=== PATIENT | female | born 1990 | race Caucasian/White ===

== ENCOUNTER 2017-03-02 16:12 | Emergency (ER) | payer OTHER ==
[~2017-03-02] VITALS: Ht 160 cm; Wt 72.5 kg
[~2017-03-02 16:12] MED LIST: AMO500 PO; D-ME118S6 PO
[2017-03-02 16:21] VITALS: Ht 160 cm; Wt 72.5 kg
[2017-03-02 17:40] LABS: URINE BLOOD (Dip) POC Trace-intact (NEGATIVE)
[2017-03-02] MEDS ORDERED: ACETAMINOPHEN 500 MG TAB PO STA (18:04)
[2017-03-02] MEDS ORDERED: ACET500C5 PO (18:09)
[2017-03-02] MEDS ORDERED: CEPH-443 PO (18:09)
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
[2017-03-02] MEDS ORDERED: ACETAMINOPHEN 500 MG TAB ONE (18:24)
[2017-03-02] MEDS ORDERED: CEPHALEXIN 500 MG CAP ONE (18:24)
[2017-03-02] MEDS ORDERED: CEPHALEXIN 500 MG CAP PO ONE (18:30)
[2017-03-02] MEDS ORDERED: PREN-21 PO (18:57)
== END 2017-03-02 18:32 | disposition home or self-care (01) ==
LOC: FTE 16:12
DX: O9A.212 Injury, poisoning and certain other consequences of external causes complicating pregnancy, second trimester (principal); S39.92XA Unspecified injury of lower back, initial encounter; V49.40XA Driver injured in collision with unspecified motor vehicles in traffic accident, initial encounter; Y92.410 Unspecified street and highway as the place of occurrence of the external cause; Z3A.27 27 weeks gestation of pregnancy
CPT/HCPCS: 81003; 87086; Z7502; Z7610; 99283

== ENCOUNTER 2017-03-02 18:39 | Inpatient (IN) | payer OTHER ==
[~2017-03-02] VITALS: Ht 154.9 cm; Wt 72.0 kg
[~2017-03-02 18:39] MED LIST changes: +ACET500C5 PO; +CEPH-443 PO
[2017-03-02 18:53] VITALS: Ht 154.9 cm; Wt 72.0 kg
[2017-03-02 18:54] VITALS: BP 95/59; PULSE 71; RESP 18
[2017-03-02] MEDS ORDERED: PREN-21 PO (18:57)
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
[2017-03-02] MEDS ORDERED: TERBUTALINE 1 MG/ML INJ SC PRN (22:30)
[2017-03-02] MEDS ORDERED: LACTATED RINGER'S 1,000 ML IV ONE (22:30)
[2017-03-02] MEDS: LACTATED RINGER'S 1,000 ML IV SCH (23:30)
[2017-03-03] MEDS ORDERED: DOCUSATE SODIUM 100 MG CAP PO PRN
[2017-03-03] MEDS ORDERED: MAGNESIUM SULFATE 4 GM/100 ML 100 ML IV ONE
[2017-03-03] MEDS: LACTATED RINGER'S 1,000 ML IV SCH ×3 (00:07→19:00)
[2017-03-03] MEDS: BETAMET NA PHOS/AC(6 MG/ML) 5ML INJ IM SCH (00:08)
[2017-03-03] MEDS: MAGNESIUM SULFATE 20 GM/500 ML 500 ML IV SCH ×3 (00:40→19:13)
[2017-03-03] MEDS ORDERED: CEFAZOLIN 2 GM/50 ML (PMX) 50 ML IVPB ONE (01:00)
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
--- NOTE | 2017-03-03 22:49 | NEURPT ---
DATE: 03/03/2017 HISTORY: The patient has intrauterine at 31 weeks and 1 day, who presented with labor. She is receiving magnesium sulfate and received 1st dose of betamethasone early this morning. Cervical length 2.2 cm. She is stable. No contractions. History is negative. REVIEW OF SYSTEMS: Negative except for as mentioned above. PHYSICAL EXAMINATION: Vital signs are stable. Physical examination is deferred. Heart tones reassuring for gestational age. Contractions none. UA negative. IMPRESSION: Intrauterine at 31 weeks with labor, status post betamethasone times 1 on magnesium sulfate. She is to receive the 2nd dose of betamethasone after midnight on March 04. Stable currently without contraction. RECOMMENDATIONS: Continue with the magnesium sulfate 24 hours after the 2nd dose of betamethasone. After that, it can be discontinued. Monitor for a few hours. If the patient is stable without any cervical change she can be discharged home with followup with perinatology in about 2 weeks for cervical length. Once discharged she needs to be on modified bedrest and pelvic rest. Dictated By: Soraya Lei MD /anna/jpc /Document#: [id number]
[2017-03-04] MEDS: BETAMET NA PHOS/AC(6 MG/ML) 5ML INJ IM SCH (00:08)
[2017-03-04] MEDS: LACTATED RINGER'S 1,000 ML IV SCH ×2 (00:09→13:26)
[2017-03-04] MEDS: MAGNESIUM SULFATE 20 GM/500 ML 500 ML IV SCH ×2 (05:59→16:17)
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
--- NOTE | 2017-03-04 17:52 | DS ---
Date/Time of Note Date/Time of Note DATE: 03/04/17 TIME: 17:51 Discharge Summary Admission/Discharge Info Admit Date/Time Mar 02, 2017 at 23:30 Discharge Date/Time Feb Discharge Diagnosis labor Patient Condition: Good Hospital Course uneventful Home Meds Active Scripts Cephalexin* (Keflex*) 500 Mg Capsule, 500 MG PO QID for 5 Days, CAP Prov:RITA CRUZ MD 03/02/17 Acetaminophen* (Tylophen*) 500 Mg Capsule, 1 CAP PO Q6H Y for PAIN AND OR ELEVATED TEMP, #15 CAP Prov:RITA CRUZ MD 03/02/17 Dextromethorphan Hb-Promethazine Hcl (Promethazine DM Syrup) 180 Ml Syrup, 5 ML PO Q6H Y for COUGH, #4 OZ Prov:SUMAN MOTTA DO 12/10/15 Amoxicillin* (Amoxicillin*) 500 Mg Cap, 500 MG PO TID for 7 Days, CAP Prov:SUMAN MOTTA DO 12/10/15 Reported Medications Wit489/Iron Fumarate/FA/Dss ( 19 Tablet) 1 Each Tablet, 1 EACH PO DAILY , TAB 03/02/17 Primary Care Provider Micah Pleitez Pending Labs Laboratory Tests Test 03/03/17 18:11 03/03/17 23:58 03/04/17 06:05 03/04/17 11:45 Magnesium Level 5.9mg/dl (1.7-2.5) 6.2mg/dl (1.7-2.5) 5.3mg/dl (1.7-2.5) 6.2mg/dl (1.7-2.5) SILVINO GARCIA M.D. Mar 04, 2017 17:52
== END 2017-03-04 23:30 | disposition home or self-care (01) | DRG 782 ==
LOC: L-D 18:39 → OBT 18:39 → L-D 18:40 → OBG 23:30 → OBT 23:30
PROVIDERS: ADMIT Obstetrics & Gynecology; ATTEND Obstetrics & Gynecology
DX: O26.873 Cervical shortening, third trimester (principal); Z3A.31 31 weeks gestation of pregnancy
CPT/HCPCS: 36415; 76817; 76818; 82731; 83735; 86850; 86900; 86901; 96360; G0463; J0690; J0702; J3475; J7120

== ENCOUNTER 2017-05-01 12:00 | Inpatient (IN) | payer OTHER ==
[2017-05-01] MEDS ORDERED: LACTATED RINGER'S 1,000 ML IV SCH (12:08)
[2017-05-01] MEDS ORDERED: LACTATED RINGER'S 1,000 ML IV PRN (12:10)
[2017-05-01] MEDS ORDERED: AMPICILLIN 2 GM/NS (PMX) 100 ML IV ONE (12:30)
[2017-05-01] MEDS ORDERED: OXYTOCIN 30 UNITS/LR 500 ML IV PRN ×2 (12:30→15:00)
[2017-05-01] MEDS ORDERED: LIDOCAINE 1% (MPF) 30 ML INJ INJ PRN (12:30)
[2017-05-01] MEDS ORDERED: OXYTOCIN 30 UNITS/LR 500 ML IV SCH ×2 (12:30)
[2017-05-01] MEDS ORDERED: BUTORPHANOL 2 MG INJ IV PRN (12:30)
[2017-05-01] MEDS ORDERED: METHYLERGONOVINE 0.2 MG INJ IM PRN ×2 (12:30→15:00)
[2017-05-01] MEDS ORDERED: IBUPROFEN 600 MG TAB PO PRN (12:30)
[2017-05-01] MEDS ORDERED: MISOPROSTOL 200 MCG TAB PR PRN ×2 (12:30→15:00)
[2017-05-01] MEDS ORDERED: CARBOPROST 250 MCG INJ IM PRN ×2 (12:30→15:00)
[2017-05-01] MEDS ORDERED: HYDROCODONE/APAP (5/325) TAB PO PRN (12:30)
--- NOTE | 2017-05-01 13:02 | HP ---
Date/Time of Note Date/Time of Note DATE: 05/01/17 TIME: 13:01 OB - History Hx of Present Free Text/Dictation 39+wks in labor : 2 Para: 1 Care: Good Care Ultrasounds: Normal mid trimester US Obstetrical Complications: None Medical Complications: None Past Family/Social History * Past Medical, Surgical, Family and Obstetric Histories reviewed from chart. OB Admission Exam Vital Signs Vital Signs Vital Signs Date Time Temp Pulse Resp B/P Pulse Ox O2 Delivery O2 Flow Rate FiO2 05/01/17 12:48 84 21 Physical Exam Abdomen: WNL Extremities: Normal Cervical Dilatation: 9cm Effacement: 100% Station: -1 Membranes: Intact Heart Rate: 140's Accelerations: Accelerations Present Decelerations: No Decelerations Varibility: Moderate Contractions on Admission: < 5 Minutes Apart Last 72 hours Lab Results CBC & BMP 05/01/17 12:10 OB Assessment/Plan Reason for admission: observation Plan: Expectant Management SILVINO GARCIA M.D. May 01, 2017 13:02
--- NOTE | 2017-05-01 13:03 | LDN ---
Date/Time of Note Date/Time of Note DATE: 05/01/17 TIME: 13:02 Delivery Summary 39+ Weeks of Gestation 39+ Placenta Delivered: Spontaneously Meconium: none, Light Episiotomy: No Anesthesia type: Local Estimated blood loss: 200 Sponge & Needle done & correct: Yes All needle counts correct: Yes Any foreign bodies felt in the: No Problems: Delivery Information Apgars 1 Minute: 9 5 Minute: 9 Suctioning Nose & mouth suctioned at morgan: Yes Delee suction performed: Yes Umbilical Cord Umbilical cord with: 3 Vessels Cord presentations: no nuchal cord Cord Blood was obtained: Yes Mother & Baby Disposition Disposition Mom & Baby to Maternity; Good: Yes Baby to NICU: No SILVINO GARCIA M.D. May 01, 2017 13:03
--- NOTE | 2017-05-01 13:03 | LDN ---
Date/Time of Note Date/Time of Note DATE: 05/01/17 TIME: 13:02 Delivery Summary 39+ Weeks of Gestation 39+ Placenta Delivered: Spontaneously Meconium: none, Light Episiotomy: No Anesthesia type: Local Estimated blood loss: 200 Sponge & Needle done & correct: Yes All needle counts correct: Yes Any foreign bodies felt in the: No Problems: Delivery Information Apgars 1 Minute: 9 5 Minute: 9 Suctioning Nose & mouth suctioned at morgan: Yes Delee suction performed: Yes Umbilical Cord Umbilical cord with: 3 Vessels Cord presentations: no nuchal cord Cord Blood was obtained: Yes Mother & Baby Disposition Disposition Mom & Baby to Maternity; Good: Yes Baby to NICU: No SLIVINO GARCIA M.D. May 01, 2017 13:03
[2017-05-01 14:55] VITALS: BP 121/67; PULSE 64; RESP 18
[2017-05-01] MEDS ORDERED: LANOLIN 7 GM TUBE TOP PRN (15:00)
[2017-05-01] MEDS ORDERED: SENNA/DOCUSATE NA (8.6MG/50MG) TAB PO PRN (15:00)
[2017-05-01] MEDS ORDERED: BENZOCAINE 20% 56 ML SPRAY TOP PRN (15:00)
[2017-05-01] MEDS ORDERED: WITCH HAZEL/GLYCERIN PAD PR PRN (15:00)
[2017-05-01] MEDS ORDERED: ZOLPIDEM 5 MG TAB PO PRN (15:00)
[2017-05-01] MEDS ORDERED: OXYCODONE/ASPIRIN (4.88/325) TAB PO PRN (15:00)
[2017-05-01 15:50] VITALS: BP 103/62; PULSE 71; RESP 18
[2017-05-01] MEDS ORDERED: AMPICILLIN 1 GM/NS (PMX) 50 ML IV SCH (16:30)
[2017-05-01] MEDS: LACTATED RINGER'S 1,000 ML IV* SCH ×2 (16:32→22:39)
[2017-05-01] MEDS: IBUPROFEN 600 MG TAB PO SCH ×2 (17:49→23:58)
[2017-05-01 19:40] VITALS: BP 102/57; PULSE 76; RESP 18
[2017-05-01] MEDS: SENNA/DOCUSATE NA (8.6MG/50MG) TAB PO SCH (21:15)
[2017-05-02 03:50] VITALS: BP 103/63; PULSE 76; RESP 18
[2017-05-02] MEDS: IBUPROFEN 600 MG TAB PO SCH ×3 (05:35→18:00)
[2017-05-02 07:30] VITALS: BP 108/65; PULSE 66; RESP 16
[2017-05-02] MEDS: SENNA/DOCUSATE NA (8.6MG/50MG) TAB PO SCH ×2 (10:37→21:00)
[2017-05-02 19:30] VITALS: BP 96/73; PULSE 62; RESP 18
[2017-05-03] MEDS: IBUPROFEN 600 MG TAB PO SCH ×3 (00:27→13:32)
[2017-05-03 08:00] VITALS: BP 102/54; PULSE 77; RESP 18
[2017-05-03] MEDS ORDERED: DIPHTH/TET/ACEL PERTUSS (ADULT) 0.5 ML VIAL IM* ONE (09:00)
[2017-05-03] MEDS: SENNA/DOCUSATE NA (8.6MG/50MG) TAB PO SCH (10:12)
--- NOTE | 2017-05-03 10:55 | QN ---
Documentation Comment Late Entry Note 05/02/17 PPD#1 is stable afebrile tolerates Diet No VB +BM +voids VS stable GEn NAD Abd soft NT ND Genitalia No blood at perinium --->Discharge Home tomorrow SILVINO GARCIA M.D. May 03, 2017 10:55
--- NOTE | 2017-05-03 10:56 | DS ---
Date/Time of Note Date/Time of Note DATE: 05/03/17 TIME: 10:55 Discharge Summary Admission/Discharge Info Admit Date/Time May 01, 2017 at 12:00 Discharge Date/Time Apr Discharge Diagnosis Patient Condition: Good Procedures vaginal delivery Hospital Course uneventful Primary Care Provider SILVINO Post M.D. May 03, 2017 10:56
--- NOTE | 2017-05-03 10:56 | DS ---
Date/Time of Note Date/Time of Note DATE: 05/03/17 TIME: 10:55 Discharge Summary Admission/Discharge Info Admit Date/Time May 01, 2017 at 12:00 Discharge Date/Time Apr Discharge Diagnosis Patient Condition: Good Procedures vaginal delivery Hospital Course uneventful Primary Care Provider SILVION Post M.D. May 03, 2017 10:56
[2017-05-03] MEDS ORDERED: INFLUENZA VIRUS VACCINE 0.5 ML (DISPENSING) IM* ONE (14:00)
== END 2017-05-03 16:42 | disposition home or self-care (01) | DRG 775 ==
LOC: L-D 12:00 → OBT 12:00 → L-D 12:03 → PP1 14:55 → EDSTATUS 05-05 12:15
PROVIDERS: ADMIT Obstetrics & Gynecology; ATTEND Obstetrics & Gynecology
PROC: 10E0XZZ Delivery of Products of Conception, External Approach (ICD-10-PCS; principal; 2017-05-01)
PROC: 3E0234Z Introduction of Serum, Toxoid and Vaccine into Muscle, Percutaneous Approach (ICD-10-PCS; 2017-05-03)
DX: O80 Encounter for full-term uncomplicated delivery (principal); Z23 Encounter for immunization; Z37.0 Single live birth; Z3A.39 39 weeks gestation of pregnancy
CPT/HCPCS: 80307; 85025; 85610; 85730; 86592; 86900; 86901; 87340; 90686; 90715; 94760; 99464; J0290; J0595; J2590; J7120